=== PATIENT | female | born 2000 | race Caucasian/White ===

== ENCOUNTER 2021-09-22 13:46 | Emergency (ER) | payer OTHER ==
[~2021-09-22] VITALS: Ht 170.2 cm; Wt 95.3 kg
[2021-09-22 14:11] VITALS: BP_SYST 15
--- NOTE | 2021-09-22 16:30 | NUR ---
Patient to ER bed H1 to gown for evaluation. Side rails up. ASSUMED CARE
--- NOTE | 2021-09-22 16:35 | NUR ---
ER at bedside examining patient.
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
--- NOTE | 2021-09-22 17:59 | NUR ---
Patient transported to radiology via AMBULATED, accompanied by RAD STAFF .
--- NOTE | 2021-09-22 18:05 | NUR ---
Returned from radiology, back to [facility].
[2021-09-22] MEDS ORDERED: IBUP-1971 PO (19:12)
[2021-09-22] MEDS ORDERED: SOM350 PO (19:12)
[2021-09-22 19:38] VITALS: BP_SYST 121
--- NOTE | 2021-09-22 19:38 | NUR ---
Patient given written and verbal discharge instructions and verbalizes understanding. ER MD discussed with patient the results and treatment provided. Patient in stable condition. ID arm band removed. Rx of SOMA AND MOTRIN given. Patient educated on pain management and to follow up with PMD. Pain Scale 2/10 Opportunity for questions provided and answered. Medication side effect fact sheet provided.
== END 2021-09-22 19:38 | disposition home or self-care (01) ==
LOC: SED 15:26
DX: S13.4XXA Sprain of ligaments of cervical spine, initial encounter (principal); S09.90XA Unspecified injury of head, initial encounter; Z79.899 Other long term (current) drug therapy; V49.49XA Driver injured in collision with other motor vehicles in traffic accident, initial encounter; Y93.89 Activity, other specified; Y92.89 Other specified places as the place of occurrence of the external cause; Y99.8 Other external cause status
CPT/HCPCS: 70450-TC; 71045; 72040-TC; 76376; 81025; 99284